=== PATIENT | female | born 1930 | race Caucasian/White ===

== ENCOUNTER 2016-09-13 17:45 | Emergency (ER) | payer MEDICARE ==
[~2016-09-13] VITALS: Ht 152.4 cm; Wt 71.4 kg
[~2016-09-13 17:45] MED LIST: CHOL500014 PO; DILT180C83 PO; LEVO88TA4 PO; PRAMOXINE HCL PR; PRE625 PO; TOP100 PO; WARF5TAB7 PO; ZINC OXIDE PR
[2016-09-13 17:55] VITALS: BP 137/93; PULSE 120; RESP 20; O2SAT 99
[2016-09-13] MEDS ORDERED: METO50TA7 PO (18:17)
[2016-09-13] MEDS ORDERED: WARF5TAB7 PO (18:17)
[2016-09-13] MEDS ORDERED: CYAN1TAB42 PO (18:17)
[2016-09-13] MEDS ORDERED: DILT240C85 PO (18:17)
--- NOTE | 2016-09-13 18:43 | ED.REPORT ---
HPI-Abd Pain F 40 and Over Date of Service Sep 13, 2016 ED Provider: Jaspreet Kang MD Patient is an 86 year old female with a hx of HTN and A-fib on Warfarin who presents to the ED complaining of weakness onset this afternoon a/p an episode of diarrhea. Associated symptoms include vomiting x1 and abdominal cramping. She reports that after the diarrhea she noticed a red color on the toilet paper but says it may have been the kidney beans she ate. She denies chest pain, SOB , hematemesis, hematochezia, or any other symptoms. She did not take her diltiazem or Warfarin yet today. She has no known sick contacts. Her normal HR is between 110-120. Nursing Notes Stated Complaint: WEAKNESS,DIARRHEA Chief Complaint: Female Abdominal Pain Nursing Notes Reviewed: Yes Allergies: Coded Allergies: Penicillins (Verified Allergy, Severe, 09/13/16) amiodarone (Verified Allergy, Severe, 09/13/16) Sulfa (Sulfonamide Antibiotics) (Verified Allergy, Unknown, 09/13/16) alprazolam (Verified Allergy, Unknown, 09/13/16) clindamycin (Verified Allergy, Unknown, 09/13/16) hydrochlorothiazide (Verified Allergy, Unknown, 09/13/16) latex (Verified Allergy, Unknown, 09/13/16) nitrofurantoin (Verified Allergy, Unknown, 09/13/16) omeprazole (Verified Allergy, Unknown, 09/13/16) prednisone (Verified Allergy, Unknown, increased heart rate, 09/13/16) Scheduled Cephalexin (Keflex) 500 Mg Capsule 500 MG PO QID Cholecalciferol (Vitamin D3) (Vitamin D) 5,000 Unit Tablet 50,000 UNIT PO QW Cyanocobalamin/Folic Acid (Vitamin D59-Kltzb Acid Tablet) 1 Each Tablet 1 EACH PO DAILY Diltiazem ER (Cardizem CD) 240 Mg Cap.er.24h 240 MG PO DAILY Estrogens Conjugated (Premarin) 0.625 Mg Tablet 0.625 MG PO DAILY Levothyroxine (Levothyroxine) 88 Mcg Tablet 88 MCG PO DAILY Metoprolol Succinate ER (Toprol XL) 50 Mg Tablet 50 MG PO DAILY Warfarin Sodium (Warfarin Sodium) 5 Mg Tablet 5 MG PO [id number] Warfarin Sodium (Warfarin Sodium) 5 Mg Tablet 2.5 MG PO [id number]-[id number] Scheduled PRN Ondansetron ODT (Zofran ODT) 4 Mg Tablet 4 MG PO Q4H PRN PRN For Nausea General Time Seen by MD: 18:41 Chief Complaint Other (Weakness ) Hx Obtained From: Patient Arrived By: Walk-in Sudden in Onset?: Yes Onset Occurred: 5 - 8 hours ago Symptom Duration: Since onset Risk Factors )( AAA Risk Stratification HypertensionNo Prior AAA, No Smoking Risk factors reviewed Past Medical History Past Medical History HTN. Hypothyroid. Atrial fibrillation. Irritable Bowel Syndrome Hemroids Past Surgical History Hysterectomy Reports: Cataract surgery Smoking History Unknown if Ever Smoker Ambulatory Status Independent Review of Systems Respiratory: Denies: Shortness of breath Cardiovascular: Denies: Chest pain GI: Reports: Abdominal pain, Diarrhea, Vomiting, Denies: Hematemesis, Hematochezia Complete sys rev & neg: except as marked. Physical Exam Vital Signs Vital Signs (First) Date Time Temp Pulse Resp B/P Pulse Ox O2 Delivery O2 Flow Rate FiO2 09/13/16 17:55 36.7 120 20 137/93 99 Room Air Initial VS: Reviewed Head / Eyes: Atraumatic, Normocephalic Skin: Warm, Dry Neurologic: Alert, Oriented, Nonfocal Psychiatric: Mood/affect normal, Behavior normal, Normal thought content General/Constitutional: Awake, Alert Respiratory / Chest: Breath sounds NL, Breath sounds = bilat, No respiratory distress Heart Rate / Rhythm: Positive: Irregular rhythm, Tachycardia Abdomen: Atraumatic, Soft, Non-tender Back: No CVA tenderness Rectum / Perineum: No gross blood Guaiac negative Interpretation & Diagnostics Lab Results Interpretation Result Diagram: 09/13/16 18309/13/16 183 Test 09/13/16 18:15 09/13/16 18:23 09/13/16 18:30 Hold Urine Received (Received) Urine Color Yellow (YELLOW) Urine Appearance Clear (CLEAR,HAZY) Urine pH 5.0 (5.0-8.0) Urine Specific [place] 1.025 (1.003-1.035) Urine Protein Tracemg/dL (NEG,TRACE) Urine Glucose (UA) Negativemg/dL (NEGATIVE) Urine Ketones Negativemg/dL (NEGATIVE) Urine Occult Blood Small (NEGATIVE) Urine Nitrite Positive (NEGATIVE) Urine Bilirubin Negative (NEGATIVE) Urine Urobilinogen Normalmg/dL (NORMAL) Urine Leukocyte Esterase Trace (NEGATIVE) Urine RBC 0-2/hpf (0-2) Urine WBC 11-50/hpf (0-5) Urine Epithelial Cells Moderate/hpf (NONE-MOD) Urine Crystals Oxalic acid crystals (NONE Urine Bacteria Moderate/hpf (NONE-FEW) Urine Hyaline Casts None/lpf (NONE) Urine Granular Casts None seen (NONE SEEN) Urine Waxy Casts None seen (NONE SEEN) Urine Red Blood Cell Casts None seen (NONE SEEN) Urine White Blood Cell Casts None seen (NONE SEEN) Urine Mucus None seen (None Seen) Urine Trichomonas None seen (NONE SEEN) Urine Yeast None (NONE SEEN) Urinalysis Comment None Urine Culture Reflexed Indicated White Blood Count 12.4th/mm3 (3.8-10.1) Red Blood Count 4.24mil/mm3 (3.90-5.20) Hemoglobin 14.0g/dL (12.0-15.6) Hematocrit 39.5% (35.0-46.0) Mean Corpuscular Volume 93.2fL (81-100) Mean Corpuscular Hemoglobin 33.0pg (27.0-35.0) Mean Corpuscular Hemoglobin Concent 35.4% (32.0-37.0) Red Cell Distribution Width 13.9% (12.3-15.4) Platelet Count 189bil/L (150-400) Neutrophils (%) (Auto) 80.3% (40-74) Lymphocytes (%) (Auto) 13.5% (14-46) Monocytes (%) (Auto) 5.7% (4-12) Eosinophils (%) (Auto) 0.1% (0-5) Basophils (%) (Auto) 0.2% (0-3) Hold Purple Top Tube Received (Received) Hold Blue Top Tube Received (Received) Sodium Level 133mEq/L (134-144) Potassium Level 4.0mEq/L (3.5-5.2) Chloride Level 96mEq/L (97-108) Carbon Dioxide Level 18mmol/L (18-29) Blood Urea Nitrogen 30mg/dL (8-27) Creatinine 1.23mg/dL (0.57-1.00) Estimat Glomerular Filtration Rate 59mL/min (>59) Glucose Level 156mg/dL (60-99) Calcium Level 8.6mg/dL (8.5-10.1) Total Bilirubin 0.3mg/dL (0.0-1.2) Aspartate Amino Transf (AST/SGOT) 22U/L (0-50) Alanine Aminotransferase (ALT/SGPT) 12U/L (0-32) Alkaline Phosphatase 48U/L (25-165) Total Protein 7.0g/dL (6.4-8.4) Albumin 3.6g/dL (3.4-5.0) Hold Luther Top Tube Received (Received) Hold Jha Top Tube Received (Received) Re-Eval/Medical Decision Med Decision/Clinical Course 86-year-old female history of atrial fibrillation on warfarin presenting with mild abdominal pain and weakness 1 day. She reports one episode of diarrhea earlier today. One episode of nonbloody nonbilious vomiting. At this time her abdominal pain is resolved. Her urine suggests UTI. Her labs are stable. Initially in nature fibrillation with RVR which resolved. Her heart rate was in the 90s at discharge. She did not want to wait any longer. She is guaiac-negative. Most likely cause of her weakness and abdominal pain is UTI. She has no signs of pyelonephritis. She requested to go home. He was given 1 dose of Rocephin here. She was discharged with Keflex. To follow up with primary doctor tomorrow. Return precautions given pain or worsening abdominal pain, fevers, weakness, nausea vomiting, back pain, any other new or worsening symptoms. Re-Evaluation/Progress #1: Time of Eval: 19:41 )( Re-Eval Abdomen: Soft Re-Evaluation/Progress Note: Discussed plan for IV abx. Patient understands and agrees with plan. All questions addressed at this time. Re-Evaluation/Progress #2: Time of Eval: 20:26 Re-Evaluation/Progress Note: Rechecked patient who is feeling better. Discussed plan for discharge. Patient understands and agrees with plan. All questions addressed at this time. Counseled Regarding: Diagnosis, Lab results, Need for follow-up, When/why to return to ED Discharge & Departure Primary Impression: UTI (urinary tract infection) Urinary tract infection type: site unspecified Hematuria presence: without hematuria Qualified Code: N39.0 - Urinary tract infection, site not specified Additional Impression: Atrial fibrillation with RVR Disposition: Home Discharge Condition All VS Reviewed: Yes Condition: Improved Patient Instructions: Urinary Tract Infection in Women (ED) Additional Instructions: Thank you for entrusting us with your care. I believe your symptoms are due to a Urinary Tract Infection. Drink plenty of fluids. Take Keflex as prescribed to clear your UTI and Zofran as needed for nausea and vomiting. Follow up with your primary doctor tomorrow. Return to the emergency department for any new or worsening symptoms including weakness, abdominal pain, nausea, vomiting, or back pain Referrals: Diane Love MD (PCP) Scribe Attestation Portions of this note were transcribed by Branden Shaver. I, Dr. Kang personally performed the history, physical exam and medical decision-making; I reviewed and confirmed the accuracy of the information in the transcribed note. Signed by: Branden Shaver 09/13/16, 2032 copies to: Diane Love MD, Ben M MD Sep 13, 2016 18:43 BRANDEN SHAVER Sep 13, 2016 18:50
[2016-09-13] MEDS ORDERED: Ondansetron 2 mg/mL 2 mL Inj IVPUSH PRN (18:55)
[2016-09-13] MEDS ORDERED: 0.9% Sodium Chloride 500 ML IV ONE (18:55)
[2016-09-13] MEDS ORDERED: Diltiazem 5 mg/mL 5 mL Inj IVPUSH ONE (19:00)
[2016-09-13 19:01] LABS: APPEARANCE,URINE CLEAR (CLEAR,HAZY); COLOR,URINE YELLOW (YELLOW); OCCULT BLOOD,URINE SMALL (NEGATIVE); UROBILINOGEN,URINE NORMAL (NORMAL)
[2016-09-13 19:06] LABS: BASOPHILS % (AUTO) 0.2 % (0-3); EOSINOPHILS % (AUTO) 0.1 % (0-5); MONOCYTES % (AUTO) 5.7 % (4-12); Mean Corpuscular Volume 93.2 fL (81-100); NEUTROPHILS % (AUTO) 80.3 % (40-74); Platelet Count 189 bil/L (150-400)
[2016-09-13] MEDS ORDERED: cefTRIAXone Inj 1,000 MG in Dextrose 5% Minibag Plus 50 ML IV ONE (19:40)
[2016-09-13] MEDS ORDERED: Diltiazem CD 240 mg ER24 Capsule PO ONE (19:45)
[2016-09-13] MEDS ORDERED: CEPH-512 PO (20:33)
[2016-09-13] MEDS ORDERED: ONDA4TAB9 PO (20:33)
[2016-09-13 20:59] VITALS: BP 140/86; PULSE 105; RESP 20; O2SAT 95
== END 2016-09-13 20:50 | disposition home or self-care (01) ==
LOC: SED 17:45
DX: N39.0 Urinary tract infection, site not specified (principal); B96.20 Unspecified Escherichia coli [E. coli] as the cause of diseases classified elsewhere; I11.9 Hypertensive heart disease without heart failure; I48.91 Unspecified atrial fibrillation; E03.9 Hypothyroidism, unspecified; Z79.01 Long term (current) use of anticoagulants; Z88.0 Allergy status to penicillin; Z88.1 Allergy status to other antibiotic agents; Z88.5 Allergy status to narcotic agent; Z88.8 Allergy status to other drugs, medicaments and biological substances; Z91.040 Latex allergy status
CPT/HCPCS: 36415; 80053; 81000; 85025; 87077; 87086; 87088; 87186; 96365; 99285; J0696; J7030

== ENCOUNTER 2016-11-19 14:42 | Observation (INO) | payer MEDICARE ==
[~2016-11-19] VITALS: Ht 154.9 cm; Wt 72.5 kg
[~2016-11-19 14:42] MED LIST changes: +CEPH-512 PO; +CYAN1TAB42 PO; -DILT180C83 PO; +DILT240C85 PO; +METO50TA7 PO; +ONDA4TAB9 PO; -PRAMOXINE HCL PR; -TOP100 PO; -ZINC OXIDE PR
[2016-11-19 14:44] VITALS: BP 155/56; PULSE 112; RESP 24; O2SAT 98
--- NOTE | 2016-11-19 15:06 | ED.REPORT ---
HPI-Chest Pain 40 and Over Date of Service Nov 19, 2016 ED Provider: Db Rowland DO An 86 year old female with a history of hypertension, hypothyroidism, atrial fibrillation and anxiety presents to the ED complaining of chest pain. The pt has frequent episodes of atrial fibrillation with associated shortness of breath , though these episodes do not generally include chest pain. She was seen by her photonics engineering technician on 11/06/2016 and prescribed digoxin. Soon after taking this medication, she noticed that her symptoms were worsening and she was developing a "burning rash" across her chest. The pt took her dose of digoxin this morning , then began experiencing 710 nonradiating chest pain at 12:00 that has persisted since. This has been accompanied by worsening shortness of breath, nausea and diaphoresis, though she denies dehydration. The pt suspects that her symptoms are due to a reaction to the digoxin. She takes diltiazem, metoprolol, warfarin and levothyroxine daily, but does not take aspirin. She denies history of CAD, TN or cardiac stent. Nursing Notes Stated Complaint: CHEST PAIN Chief Complaint: Dysrhythmia/Cardiac Nursing Notes Reviewed: Yes Allergies: Coded Allergies: Penicillins (Verified Allergy, Severe, 11/19/16) amiodarone (Verified Allergy, Severe, 11/19/16) Sulfa (Sulfonamide Antibiotics) (Verified Allergy, Unknown, 11/19/16) alprazolam (Verified Allergy, Unknown, 11/19/16) clindamycin (Verified Allergy, Unknown, 11/19/16) hydrochlorothiazide (Verified Allergy, Unknown, 11/19/16) latex (Verified Allergy, Unknown, 11/19/16) nitrofurantoin (Verified Allergy, Unknown, 11/19/16) omeprazole (Verified Allergy, Unknown, 11/19/16) prednisone (Verified Allergy, Unknown, increased heart rate, 11/19/16) Scheduled Cholecalciferol (Vitamin D3) (Vitamin D) 50,000 Unit Capsule 50,000 UNIT PO every saturday Cyanocobalamin/Folic Acid (Vitamin A07-Pcdya Acid Tablet) 1 Each Tablet 1 EACH PO DAILY Digoxin (Digoxin) 125 Mcg Tablet 125 MCG PO HS Diltiazem ER (Cardizem CD) 240 Mg Cap.er.24h 240 MG PO QPM Estrogens Conjugated (Premarin) 0.625 Mg Tablet 0.625 MG PO Sat,,,Sat,Sat, Levothyroxine (Levothyroxine) 88 Mcg Tablet 88 MCG PO DAILY Metoprolol Succinate ER (Metoprolol Succinate ER) 100 Mg Tab.er.24h 100 MG PO QPM Warfarin Sodium (Warfarin Sodium) 5 Mg Tablet 5 MG PO ,,,[place] Warfarin Sodium (Warfarin Sodium) 5 Mg Tablet 2.5 MG PO Sat,Sat,Sat General Time Seen by MD: 15:05 Chief Complaint Chest pain Hx Obtained From: Patient Arrived By: Walk-in Sudden in Onset?: Yes Onset Occurred: 1 - 4 hours ago Symptom Duration: Since onset Recent Healthcare: No recent hospitalization, Recent doctor visit Similar Sx Previous: No Past Medical History Past Medical History HTN. Hypothyroid. Atrial fibrillation. Severe anxiety Irritable Bowel Syndrome Hemroids Arthritis Past Surgical History Hysterectomy Reports: Cataract surgery Smoking History Unknown if Ever Smoker Social History Other Social History: Good social support Ambulatory Status Independent Review of Systems Review of Systems Note: denies dehydration Respiratory: Reports: Shortness of breath, Denies: Non-productive cough Cardiovascular: Reports: Chest pain GI: Reports: Nausea, Denies: Abdominal pain, Vomiting Musculoskeletal: Denies: Back pain, Neck pain Skin: Reports Diaphoresis, Reports Rash Complete sys rev & neg: except as marked. Physical Exam Initial Vital Signs Vital Signs (First) Date Time Temp Pulse Resp B/P Pulse Ox O2 Delivery O2 Flow Rate FiO2 11/19/16 14:44 36.4 112 24 155/56 98 Room Air Initial VS: Reviewed General/Constitutional: Awake, Alert Respiratory / Chest: Atraumatic, Breath sounds NL, Breath sounds = bilat, No respiratory distress Cardiovascular: Heart rate NL, Heart sounds NL Heart Rate / Rhythm: Positive: Irreg irregular rhythm Abdomen: Atraumatic, Soft, Non-tender, BS normoactive Neck: Atraumatic, Supple, Full range of motion Back: Atraumatic, Full range of motion Lower Extremity / Pelvis / MS: Atraumatic, Full range of motion trace lower extremity edema bilaterally Skin: Atraumatic, Color NL, No rash, Warm, Dry Neurologic: Oriented X3, Speech NL, No motor deficits, No sensory deficits Psychiatric: Affect NL, Mood NL Head / Eyes: Atraumatic, Normocephalic, PERRL, EOMI ENT: Atraumatic, Airway patent, Mucous membranes moist Upper Extremity / MS: Atraumatic, Full range of motion Interpretation & Diagnostics Lab Results Interpretation Result Diagram: 11/20/16 0200 11/20/16 0200 Test 11/19/16 15:10 11/19/16 16:31 Neutrophils (%) (Auto) 62.3% (40-74) Lymphocytes (%) (Auto) 29.0% (14-46) Monocytes (%) (Auto) 7.1% (4-12) Eosinophils (%) (Auto) 0.8% (0-5) Basophils (%) (Auto) 0.4% (0-3) Activated Partial Thromboplast Time 33.0sec (22.8-33.0) D-Dimer < 0.5mg/L FEU (<0.50) Total Bilirubin 0.2mg/dL (0.0-1.2) Aspartate Amino Transf (AST/SGOT) 20U/L (0-50) Alanine Aminotransferase (ALT/SGPT) 12U/L (0-32) Alkaline Phosphatase 49U/L (25-165) Pro-B-Type Natriuretic Peptide 1517pg/mL (0-738) Total Protein 7.7g/dL (6.4-8.4) Albumin 3.9g/dL (3.4-5.0) Thyroid Stimulating Hormone (TSH) 1.640uIU/mL (0.450-4.500) Digoxin Level 0.7nG/mL (0.9-2.0) Urine Color Yellow (YELLOW) Urine Appearance Clear (CLEAR,HAZY) Urine pH 6.0 (5.0-8.0) Urine Specific [place] 1.010 (1.003-1.035) Urine Protein Negativemg/dL (NEG,TRACE) Urine Glucose (UA) Negativemg/dL (NEGATIVE) Urine Ketones Negativemg/dL (NEGATIVE) Urine Occult Blood Small (NEGATIVE) Urine Nitrite Negative (NEGATIVE) Urine Bilirubin Negative (NEGATIVE) Urine Urobilinogen Normalmg/dL (NORMAL) Urine Leukocyte Esterase Negative (NEGATIVE) Urine RBC 3-10/hpf (0-2) Urine WBC 0-5/hpf (0-5) Urine Epithelial Cells Moderate/hpf (NONE-MOD) Urine Crystals None seen (NONE SEEN) Urine Bacteria Moderate/hpf (NONE-FEW) Urine Hyaline Casts None/lpf (NONE) Urine Granular Casts None seen (NONE SEEN) Urine Waxy Casts None seen (NONE SEEN) Urine Red Blood Cell Casts None seen (NONE SEEN) Urine White Blood Cell Casts None seen (NONE SEEN) Urine Mucus None seen (None Seen) Urine Trichomonas None seen (NONE SEEN) Urine Yeast None (NONE SEEN) Urinalysis Comment None Urine Culture Reflexed Indicated Hold Urine Received (Received) Laboratory Tests 72 Hours Test 11/19/16 15:10 11/19/16 16:31 White Blood Count 7.6th/mm3 (3.8-10.1) Red Blood Count 4.37mil/mm3 (3.90-5.20) Hemoglobin 14.4g/dL (12.0-15.6) Hematocrit 40.2% (35.0-46.0) Mean Corpuscular Volume 92.0fL (81-100) Mean Corpuscular Hemoglobin 33.0pg (27.0-35.0) Mean Corpuscular Hemoglobin Concent 35.8% (32.0-37.0) Red Cell Distribution Width 14.0% (12.3-15.4) Platelet Count 197bil/L (150-400) Neutrophils (%) (Auto) 62.3% (40-74) Lymphocytes (%) (Auto) 29.0% (14-46) Monocytes (%) (Auto) 7.1% (4-12) Eosinophils (%) (Auto) 0.8% (0-5) Basophils (%) (Auto) 0.4% (0-3) Prothrombin Time 20.8sec (8.1-12.5) Prothromb Time International Ratio 1.92ratio Activated Partial Thromboplast Time 33.0sec (22.8-33.0) D-Dimer < 0.5mg/L FEU (<0.50) Sodium Level 134mEq/L (134-144) Potassium Level 3.4mEq/L (3.5-5.2) Chloride Level 93mEq/L (97-108) Carbon Dioxide Level 23mmol/L (18-29) Blood Urea Nitrogen 34mg/dL (8-27) Creatinine 1.17mg/dL (0.57-1.00) Estimat Glomerular Filtration Rate 63mL/min (>59) Glucose Level 139mg/dL (60-99) Calcium Level 9.5mg/dL (8.5-10.1) Magnesium Level 1.6mg/dL (1.6-2.6) Total Bilirubin 0.2mg/dL (0.0-1.2) Aspartate Amino Transf (AST/SGOT) 20U/L (0-50) Alanine Aminotransferase (ALT/SGPT) 12U/L (0-32) Alkaline Phosphatase 49U/L (25-165) Troponin T < 0.010ug/L (0.0-0.011) Pro-B-Type Natriuretic Peptide 1517pg/mL (0-738) Total Protein 7.7g/dL (6.4-8.4) Albumin 3.9g/dL (3.4-5.0) Thyroid Stimulating Hormone (TSH) 1.640uIU/mL (0.450-4.500) Digoxin Level 0.7nG/mL (0.9-2.0) Urine Color Yellow (YELLOW) Urine Appearance Clear (CLEAR,HAZY) Urine pH 6.0 (5.0-8.0) Urine Specific [place] 1.010 (1.003-1.035) Urine Protein Negativemg/dL (NEG,TRACE) Urine Glucose (UA) Negativemg/dL (NEGATIVE) Urine Ketones Negativemg/dL (NEGATIVE) Urine Occult Blood Small (NEGATIVE) Urine Nitrite Negative (NEGATIVE) Urine Bilirubin Negative (NEGATIVE) Urine Urobilinogen Normalmg/dL (NORMAL) Urine Leukocyte Esterase Negative (NEGATIVE) Urine RBC 3-10/hpf (0-2) Urine WBC 0-5/hpf (0-5) Urine Epithelial Cells Moderate/hpf (NONE-MOD) Urine Crystals None seen (NONE SEEN) Urine Bacteria Moderate/hpf (NONE-FEW) Urine Hyaline Casts None/lpf (NONE) Urine Granular Casts None seen (NONE SEEN) Urine Waxy Casts None seen (NONE SEEN) Urine Red Blood Cell Casts None seen (NONE SEEN) Urine White Blood Cell Casts None seen (NONE SEEN) Urine Mucus None seen (None Seen) Urine Trichomonas None seen (NONE SEEN) Urine Yeast None (NONE SEEN) Urinalysis Comment None Urine Culture Reflexed Indicated Hold Urine Received (Received) ECG Interpretation ECG Interpretation: atrial fibrillation with a rate of 84 old inferior infarct prolonged QT interval T wave inversion in V5 and V6 when compared to prior dated 02/09/2014, heart rate has slowed and T wave inversions are more pronounced Time: 15:48 Interpreted by: ED physician X-Ray Chest Interpretation Chest Xray Interpretation: IMPRESSION: 1. No definite acute cardiopulmonary disease. 2. Probable small calcified granuloma peripherally in the left lung base. 3. Cardiomegaly redemonstrated. Dictated by: Christopher Brennan M.D. on 11/19/2016 at 15:15 Approved by: Christopher Brennan M.D. on 11/19/2016 at 15:21 Interpretation / Wet Read by: Interpret - Radiologist Re-Eval/Medical Decision Med Decision/Clinical Course 86-year-old female with a history of chronic A. fib presenting with intermittent chest pain associated with activity and increasingly short of breath beyond her baseline after recently starting digoxin and she also notes an accompanying burning rash on her chest that is not visible to me. I discussed her care with her photonics engineering technician, Dr. Del Cid who does not believe the digoxin is a factor and would like to keep this going at this time. She notes the patient has quite a bit of anxiety. I have given her Ativan 0.5 mg and this did not seem to improve her anxiousness in the ER. concern for pulmonary embolus is low as she is on warfarin and d-dimer was negative. Her x- ray shows cardiomegaly and pro BNP is elevated. She was treated with Lasix IV. She also was treated with Nitropaste which seemed initially to improve her pain but upon ambulating the pain returned. No obvious acute coronary syndrome based off of EKG or initial troponin however fact that she is 86 and is having exertional chest pain/dyspnea admission is advisable. Patient is admitted for further workup and treatment Time of Eval: 16:39 Re-Evaluation/Progress Note: Pt rechecked, who is resting. Her pain had improved somewhat but returned when she stood and walked. Time of Eval: 17:24 Patient Status: Condition improved Re-Evaluation/Progress Note: Pt rechecked, who is comfortable. The diagnosis and plan for admission are discussed. The pt understands and agrees with the plan. All questions are addressed at this time. Time of Eval: 17:29 Re-Evaluation/Progress Note: Spoke with pt's daughter, Magnolia, on the phone. Pt's daughter is updated on the pt's condition. Consultation #1: Referral / Consult Name: Chrystal Del Cid MD Consulted With: Cardiology Call Returned at: 17:05 Movie Projectionist: Agrees with eval, Agrees with plan Note: Spoke with Dr. Pettit, cardiology, regarding pt's case. Dr. Pettit agrees with the evaluation and plan for admission. Consultation #2: Referral / Consult Name: Carlos Zafar Consulted With: Hospitalist Call Returned at: 17:38 Movie Projectionist: Agrees with eval, Agrees with plan, Accepts admit Note: Spoke with Dr. Zafar, hospitalist, regarding pt's case. Dr. Zafar agrees with the evaluation and agrees to admit the pt. Counseled Regarding: Diagnosis, Lab results, Need for admission Discharge & Departure Primary Impression: Chest pain Chest pain type: unspecified Qualified Code: R07.9 - Chest pain, unspecified Additional Impressions: Shortness of breath Atrial fibrillation Atrial fibrillation type: chronic Qualified Code: I48.2 - Chronic atrial fibrillation Disposition: ADMITTED TO HOSPITAL Discharge Condition All VS Reviewed: Yes Condition: Stable Referrals: Diane Love MD (PCP) Chrystal Del Cid MD Scribe Attestation Portions of this note were transcribed by Buddy Aliica. I, Dr. Rowland personally performed the history, physical exam and medical decision-making; I reviewed and confirmed the accuracy of the information in the transcribed note. copies to: Diane Love MD; Chrystal Del Cid MD, Gary R DO Nov 19, 2016 15:06 BUDDY ALICIA Nov 19, 2016 15:32
--- NOTE | 2016-11-19 15:22 | DRSVH ---
PROCEDURE: X-RAY CHEST ONE VIEW, PORTABLE ([id number]) INDICATIONS: PAIN TECHNIQUE: One view of the chest was acquired. COMPARISON: [facility], , CHEST 1VW (PORTABLE), 02/08/2014, 4:56. FINDINGS: Surgical changes and devices: None. Lungs and pleura: No pleural effusions or pneumothorax. No acute consolidation. There is a small d ense nodule in the left lung base peripherally measuring approximately 5 mm suggestive of a calcified granuloma. Mediastinum: Mediastinal contours appear unchanged. Heart size is enlarged. Bones and chest wall: No suspicious bony lesions. Overlying soft tissues appear unremarkable. IMPRESSION: 1. No definite acute cardiopulmonary disease. 2. Probable small calcified granuloma peripherally in the left lung base. 3. Cardiomegaly redemonstrated. Dictated by: Christopher Brennan M.D. on 11/19/2016 at 15:15 Approved by: Christopher Brennan M.D. on 11/19/2016 at 15:21
[2016-11-19] MEDS ORDERED: Nitroglycerin 2% 1 Gm Ointment TOPICAL ONE (15:30)
[2016-11-19] MEDS ORDERED: Ondansetron 2 mg/mL 2 mL Inj IVPUSH ONE (15:35)
[2016-11-19 15:53] LABS: BASOPHILS % (AUTO) 0.4 % (0-3); EOSINOPHILS % (AUTO) 0.8 % (0-5); MONOCYTES % (AUTO) 7.1 % (4-12); NEUTROPHILS % (AUTO) 62.3 % (40-74); Platelet Count 197 bil/L (150-400)
[2016-11-19 16:19] LABS: D-Dimer < 0.5 mg/L FEU (<0.50); INR 1.92 ratio
[2016-11-19 16:21] LABS: Magnesium 1.6 mg/dL (1.6-2.6)
[2016-11-19 16:30] LABS: TROPONIN T < 0.010 ug/L (0.0-0.011)
[2016-11-19 16:43] VITALS: BP 155/94; PULSE 85; RESP 19; O2SAT 100
[2016-11-19] MEDS ORDERED: Furosemide 10 mg/mL 4 mL Inj IVPUSH ONE (16:45)
[2016-11-19 16:50] LABS: APPEARANCE,URINE CLEAR (CLEAR,HAZY); COLOR,URINE YELLOW (YELLOW); OCCULT BLOOD,URINE SMALL (NEGATIVE); UROBILINOGEN,URINE NORMAL (NORMAL)
[2016-11-19] MEDS ORDERED: LORazepam 0.5 mg Tablet PO ONE (17:10)
[2016-11-19] MEDS ORDERED: Polyethylene Glycol (PEG) 17 Gm Powder PO PRN (18:15)
[2016-11-19] MEDS ORDERED: Ondansetron 2 mg/mL 2 mL Inj IVPUSH PRN (18:15)
[2016-11-19] MEDS ORDERED: Alum-Mag Hydrox-Simeth 30 mL Suspension PO PRN (18:15)
--- NOTE | 2016-11-19 18:25 | PCM.HPMED ---
Subjective Date of Service Nov 19, 2016 Primary Provider: Admitting Physician: Carlos Zafar Primary Care Physician: Diane Love MD Attending Physician: Carlos Zafar Chief Complaint: Chest pain History of Present Illness: 86 year old female with a history of hypertension, hypothyroidism, atrial fibrillation (on Coumadin) and anxiety presents with complaint of acute mid- sternal chest pain that started around noon time today. She was sitting when the pain started. She describes the pain as pressure type and rates it at about 6 out of 10 and non-radiating. She stood up hoping that the pain would improve but noticed that she was a little more short of breath than her usual. When the pain didn't resolve she called her neighbor who brought her to the ED. In the ED she received ASA and 1 inch Nitropaste which she says didn't make a difference in her symptoms. Although she says right this moment she has no chest pain she can't really recall when the pain resolved completely and insists that the pain isn't gone completely because it has been going away and coming back since she's been in the ED. She otherwise denies any other associated symptoms like nausea, vomiting, diaphoresis, or lightheadedness. She has not noticed any new swelling in her extremities and denies any orthopnea or paroxysmal nocturnal dyspnea. She denies any recent chest pain with exertion. Of note, she was seen by her litigation services manager (Dr. Del Cid) on 11/06/2016 and was started on Digoxin. Soon after taking this medication, she noticed that her symptoms of palpitation were worsening and she was developing a "burning rash" across her chest. Review of Systems: Constitutional: Negative, except as otherwise mentioned in the history above. Ophthalmologic: Negative, except as otherwise mentioned in the history above. Cardiovascular: Negative, except as otherwise mentioned in the history above. Respiratory: Negative, except as otherwise mentioned in the history above. Gastrointestinal: Negative, except as otherwise mentioned in the history above. Genitourinary: Negative, except as otherwise mentioned in the history above. Musculoskeletal: Negative, except as otherwise mentioned in the history above. Neurological: Negative, except as otherwise mentioned in the history above. Psychiatric: Negative, except as otherwise mentioned in the history above. Hematologic/Lymphatic: Negative, except as otherwise mentioned in the history above. Allergic/Immunologic: Negative, except as otherwise mentioned in the history above. Allergies Coded Allergies: Penicillins (Verified Allergy, Severe, 11/19/16) amiodarone (Verified Allergy, Severe, 11/19/16) Sulfa (Sulfonamide Antibiotics) (Verified Allergy, Unknown, 11/19/16) alprazolam (Verified Allergy, Unknown, 11/19/16) clindamycin (Verified Allergy, Unknown, 11/19/16) hydrochlorothiazide (Verified Allergy, Unknown, 11/19/16) latex (Verified Allergy, Unknown, 11/19/16) nitrofurantoin (Verified Allergy, Unknown, 11/19/16) omeprazole (Verified Allergy, Unknown, 11/19/16) prednisone (Verified Allergy, Unknown, increased heart rate, 11/19/16) Home Medications Not officially verified yet but per ED report she seems to be on the following ( note that Digoxin is missing from this list) Scheduled Cephalexin (Keflex) 500 Mg Capsule 500 MG PO QID Cholecalciferol (Vitamin D3) (Vitamin D) 5,000 Unit Tablet 50,000 UNIT PO QW Cyanocobalamin/Folic Acid (Vitamin B50-Wpfpi Acid Tablet) 1 Each Tablet 1 EACH PO DAILY Diltiazem ER (Cardizem CD) 240 Mg Cap.er.24h 240 MG PO DAILY Estrogens Conjugated (Premarin) 0.625 Mg Tablet 0.625 MG PO DAILY Levothyroxine (Levothyroxine) 88 Mcg Tablet 88 MCG PO DAILY Metoprolol Succinate ER (Toprol XL) 50 Mg Tablet 50 MG PO DAILY Warfarin Sodium (Warfarin Sodium) 5 Mg Tablet 5 MG PO [id number] Warfarin Sodium (Warfarin Sodium) 5 Mg Tablet 2.5 MG PO MON-WED-SAT Scheduled PRN Ondansetron ODT (Zofran ODT) 4 Mg Tablet 4 MG PO Q4H PRN PRN For Nausea Exam Vital Signs & I/O Vital Sign- Last 8 Hours Date Time Temp Pulse Resp B/P Pulse Ox O2 Delivery O2 Flow Rate FiO2 11/19/16 16:43 85 19 155/94 100 Room Air 11/19/16 14:44 36.4 112 24 155/56 98 Room Air Lab & Micro Results Laboratory Tests Test 11/19/16 15:10 11/19/16 16:31 White Blood Count 7.6th/mm3 (3.8-10.1) Red Blood Count 4.37mil/mm3 (3.90-5.20) Hemoglobin 14.4g/dL (12.0-15.6) Hematocrit 40.2% (35.0-46.0) Mean Corpuscular Volume 92.0fL (81-100) Mean Corpuscular Hemoglobin 33.0pg (27.0-35.0) Mean Corpuscular Hemoglobin Concent 35.8% (32.0-37.0) Red Cell Distribution Width 14.0% (12.3-15.4) Platelet Count 197bil/L (150-400) Neutrophils (%) (Auto) 62.3% (40-74) Lymphocytes (%) (Auto) 29.0% (14-46) Monocytes (%) (Auto) 7.1% (4-12) Eosinophils (%) (Auto) 0.8% (0-5) Basophils (%) (Auto) 0.4% (0-3) Prothrombin Time 20.8sec (8.1-12.5) Prothromb Time International Ratio 1.92ratio Activated Partial Thromboplast Time 33.0sec (22.8-33.0) D-Dimer < 0.5mg/L FEU (<0.50) Sodium Level 134mEq/L (134-144) Potassium Level 3.4mEq/L (3.5-5.2) Chloride Level 93mEq/L (97-108) Carbon Dioxide Level 23mmol/L (18-29) Blood Urea Nitrogen 34mg/dL (8-27) Creatinine 1.17mg/dL (0.57-1.00) Estimat Glomerular Filtration Rate 63mL/min (>59) Glucose Level 139mg/dL (60-99) Calcium Level 9.5mg/dL (8.5-10.1) Magnesium Level 1.6mg/dL (1.6-2.6) Total Bilirubin 0.2mg/dL (0.0-1.2) Aspartate Amino Transf (AST/SGOT) 20U/L (0-50) Alanine Aminotransferase (ALT/SGPT) 12U/L (0-32) Alkaline Phosphatase 49U/L (25-165) Troponin T < 0.010ug/L (0.0-0.011) Pro-B-Type Natriuretic Peptide 1517pg/mL (0-738) Total Protein 7.7g/dL (6.4-8.4) Albumin 3.9g/dL (3.4-5.0) Thyroid Stimulating Hormone (TSH) 1.640uIU/mL (0.450-4.500) Digoxin Level 0.7nG/mL (0.9-2.0) Urine Color Yellow (YELLOW) Urine Appearance Clear (CLEAR,HAZY) Urine pH 6.0 (5.0-8.0) Urine Specific [place] 1.010 (1.003-1.035) Urine Protein Negativemg/dL (NEG,TRACE) Urine Glucose (UA) Negativemg/dL (NEGATIVE) Urine Ketones Negativemg/dL (NEGATIVE) Urine Occult Blood Small (NEGATIVE) Urine Nitrite Negative (NEGATIVE) Urine Bilirubin Negative (NEGATIVE) Urine Urobilinogen Normalmg/dL (NORMAL) Urine Leukocyte Esterase Negative (NEGATIVE) Urine RBC 3-10/hpf (0-2) Urine WBC 0-5/hpf (0-5) Urine Epithelial Cells Moderate/hpf (NONE-MOD) Urine Crystals None seen (NONE SEEN) Urine Bacteria Moderate/hpf (NONE-FEW) Urine Hyaline Casts None/lpf (NONE) Urine Granular Casts None seen (NONE SEEN) Urine Waxy Casts None seen (NONE SEEN) Urine Red Blood Cell Casts None seen (NONE SEEN) Urine White Blood Cell Casts None seen (NONE SEEN) Urine Mucus None seen (None Seen) Urine Trichomonas None seen (NONE SEEN) Urine Yeast None (NONE SEEN) Urinalysis Comment None Urine Culture Reflexed Indicated Hold Urine Received (Received) Microbiology 11/19/16 Urine Culture, Received Pending Result Diagram: 11/19/16 1510 11/19/16 1510 PMH 1. Chronic atrial fibrillation on warfarin 2. Hypothyroidism. 3. Hypertension. 4. Rheumatoid arthritis not on medication. 5. Irritable bowel syndrome Family History Denies any family history of heart issues Social History Hx Alcohol Use: No Hx Substance Use: No Hx Tobacco Use: No Smoking Status: Never Smoker Living Arrangement: Alone (in a house without stairs) Exam Vital Signs Vital Sign - Last Date Time Temp Pulse Resp B/P Pulse Ox O2 Delivery O2 Flow Rate FiO2 11/19/16 16:43 85 19 155/94 100 Room Air 9/11/17 14:44 36.4 General: Alert, Oriented X3, Cooperative, No Acute Distress Head: Normal Eyes: PERRLA, EOMI, Scleral Anicteric Nose: Mucous Membr Moist/[place] Mouth: Mucous Membr Moist/[place] Neck: Supple Chest & Lungs: Chest Wall Normal, Clear to auscultation & percussion Cardiovascular: Other (irreg/irreg) Pulses: NL carotid, radial, femoral, DP, PT Abdomen: Non-tender, Non-distended, Normoactive bowel tones, Soft Extremities: Other (trace bilateral LE edema up to the ankles ) Skin: Other (no obvious ulcer or rash noted) Neurological: Grossly Neurologically Intact, Cranial Nerves 2-12 Intact, Normal Speech Additional Information: Psych: calm, appropriate Lab and Diagnostics Result Diagram: 11/19/16 1510 11/19/16 1510 X-Rays, CTs and MRIs Date of Service: 11/19/16 1450 PROCEDURE: X-RAY CHEST ONE VIEW, PORTABLE ([id number]) IMPRESSION: 1. No definite acute cardiopulmonary disease. 2. Probable small calcified granuloma peripherally in the left lung base. 3. Cardiomegaly redemonstrated. Dictated by: Christopher Brennan M.D. on 11/19/2016 at 15:15 Approved by: Christopher Brennan M.D. on 11/19/2016 at 15:21 12-lead ECG A-fib at rate of about [address] elevation/depression noted. Assessment & Plan 86 year old female with a history of hypertension, hypothyroidism, atrial fibrillation (on Coumadin) and anxiety presents with complaint of acute mid- sternal chest pain. # Acute chest pain, present on admission. - Initial workup is negative for any acute ACS and reassuring - Cycle Trop x 3 - Echo + Stress test in AM - Check fasting lipid panel - D-Dimer already checked and negative # Elevated Cr on admission unclear if acute or chronic kidney disease - Her Cr was elevated back in September of this year but was normal before that. She notes that she never had any history of kidney disease until September 2016 at which time her elevated Cr was supposedly attributed the antibiotics that she was taking for her UTI. - Avoid nephrotoxic meds - Followup repeat labs in AM - If Cr still elevated in AM consider renal U/S vs further outpatient followup # Mild acute hypokalemia, present on admission. - Replete and followup # Chronic atrial fibrillation on warfarin, present on admission - Rate controlled - Continue with Warfarin (Pharmacy to dose) - INR currently mildly sub-therapeutic. Followup repeat INR in AM # Chronic Hypothyroidism. Presumed stable. - Continue with home dose Levothyroxine once home meds verified # Chronic Hypertension. Currently a little poorly controlled. - Verify home BP meds and resume # Rheumatoid arthritis not on medication. - Currently stable # Irritable bowel syndrome. - Currently stable. Expected length of hospital stay is less than 2 midnights and likely 1-2 days GI Prophylaxis: Not indicated VTE Prophylaxis: Sub-Q Heparin (Unfractionated) (until INR becomes therapeutic on Coumadin) Resuscitation Status: Limited Interventions (OK to resuscitate but do NOT intubate. Discussed and verified with the patient.) Limited Interventions: Compressions, Cardioversion/Defibrillation, BiPAP, Medications and IV Fluid Time spent 60 min Carlos Zafar Nov 19, 2016 18:25
[2016-11-19] MEDS ORDERED: DIGO125T73 PO (18:48)
[2016-11-19] MEDS ORDERED: METO-394 PO (18:48)
[2016-11-19] MEDS ORDERED: CHOL500050 PO (18:49)
[2016-11-19] MEDS ORDERED: Potassium Chloride 20 mEq SR Tablet PO ONE (18:50)
[2016-11-19 19:14] VITALS: BP 141/92; PULSE 102; PULSE 92; RESP 18; RESP 19; O2SAT 97
[2016-11-19 19:22] VITALS: PULSE 93
--- NOTE | 2016-11-19 19:58 | PCM.CONPHA ---
Subjective Date of Service: Nov 19, 2016 Chest pain Reason for Pharmacy Consult: Anticoagulation Management Objective Vital Signs Date Time Temp Pulse Resp B/P Pulse Ox O2 Delivery O2 Flow Rate FiO2 11/19/16 19:14 36.3 102 19 141/92 97 Room Air 11/19/16 19:14 92 18 11/19/16 16:43 85 19 155/94 100 Room Air 11/19/16 14:44 36.4 112 24 155/56 98 Room Air Weight (Kilograms): 72.600 Height (Feet): 5 Height (Inches): 1.00 Test 11/19/16 15:10 11/19/16 16:31 11/19/16 18:46 White Blood Count 7.6th/mm3 (3.8-10.1) Red Blood Count 4.37mil/mm3 (3.90-5.20) Hemoglobin 14.4g/dL (12.0-15.6) Hematocrit 40.2% (35.0-46.0) Mean Corpuscular Volume 92.0fL (81-100) Mean Corpuscular Hemoglobin 33.0pg (27.0-35.0) Mean Corpuscular Hemoglobin Concent 35.8% (32.0-37.0) Red Cell Distribution Width 14.0% (12.3-15.4) Platelet Count 197bil/L (150-400) Neutrophils (%) (Auto) 62.3% (40-74) Lymphocytes (%) (Auto) 29.0% (14-46) Monocytes (%) (Auto) 7.1% (4-12) Eosinophils (%) (Auto) 0.8% (0-5) Basophils (%) (Auto) 0.4% (0-3) Prothrombin Time 20.8sec (8.1-12.5) Prothromb Time International Ratio 1.92ratio Activated Partial Thromboplast Time 33.0sec (22.8-33.0) D-Dimer < 0.5mg/L FEU (<0.50) Sodium Level 134mEq/L (134-144) Potassium Level 3.4mEq/L (3.5-5.2) Chloride Level 93mEq/L (97-108) Carbon Dioxide Level 23mmol/L (18-29) Blood Urea Nitrogen 34mg/dL (8-27) Creatinine 1.17mg/dL (0.57-1.00) Estimat Glomerular Filtration Rate 63mL/min (>59) Glucose Level 139mg/dL (60-99) Calcium Level 9.5mg/dL (8.5-10.1) Magnesium Level 1.6mg/dL (1.6-2.6) Total Bilirubin 0.2mg/dL (0.0-1.2) Aspartate Amino Transf (AST/SGOT) 20U/L (0-50) Alanine Aminotransferase (ALT/SGPT) 12U/L (0-32) Alkaline Phosphatase 49U/L (25-165) Pro-B-Type Natriuretic Peptide 1517pg/mL (0-738) Total Protein 7.7g/dL (6.4-8.4) Albumin 3.9g/dL (3.4-5.0) Thyroid Stimulating Hormone (TSH) 1.640uIU/mL (0.450-4.500) Digoxin Level 0.7nG/mL (0.9-2.0) Urine Color Yellow (YELLOW) Urine Appearance Clear (CLEAR,HAZY) Urine pH 6.0 (5.0-8.0) Urine Specific [place] 1.010 (1.003-1.035) Urine Protein Negativemg/dL (NEG,TRACE) Urine Glucose (UA) Negativemg/dL (NEGATIVE) Urine Ketones Negativemg/dL (NEGATIVE) Urine Occult Blood Small (NEGATIVE) Urine Nitrite Negative (NEGATIVE) Urine Bilirubin Negative (NEGATIVE) Urine Urobilinogen Normalmg/dL (NORMAL) Urine Leukocyte Esterase Negative (NEGATIVE) Urine RBC 3-10/hpf (0-2) Urine WBC 0-5/hpf (0-5) Urine Epithelial Cells Moderate/hpf (NONE-MOD) Urine Crystals None seen (NONE SEEN) Urine Bacteria Moderate/hpf (NONE-FEW) Urine Hyaline Casts None/lpf (NONE) Urine Granular Casts None seen (NONE SEEN) Urine Waxy Casts None seen (NONE SEEN) Urine Red Blood Cell Casts None seen (NONE SEEN) Urine White Blood Cell Casts None seen (NONE SEEN) Urine Mucus None seen (None Seen) Urine Trichomonas None seen (NONE SEEN) Urine Yeast None (NONE SEEN) Urinalysis Comment None Urine Culture Reflexed Indicated Hold Urine Received (Received) Troponin T < 0.010ug/L (0.0-0.011) Assessment/Plan Assessment/Plan WARFARIN MANAGEMENT A\ 86 YO F ADMITTED FOR CHEST PAIN WITH HISTORY OF AFIB HOME DOSE WARFARIN 2.5mg SATURDAY,SATURDAY,SATURDAY; 5mg ALL OTHER DAYS GOAL INR =2-3 CURRENT INR= 1.92 HCT=40.2 LLY=094 NO BLEEDING REPORTED BY RN PT REPORTED LAST WARFARIN DOSE 11/18 P\ WILL CONTINUE PT HOME REGIMEN WARFARIN 5MG PO X1 TONIGHT AND CHECK INR WITH AM LABS. Carlo Mcdowell formerly [facility] Nov 19, 2016 19:58
[2016-11-19] MEDS: Heparin 5,000 Unit/mL Inj SUBQ SCH (20:00)
[2016-11-19] MEDS: Diltiazem CD 240 mg ER24 Capsule PO SCH (20:42)
--- NOTE | 2016-11-19 21:43 | NUR ---
ADMIT NOTE Pt arrived to [facility] Room 3021 approx 1900. Pt alert & oriented. Pt placed on remote telemetry. VS obtained. Pt states pain in chest "is better." Pt hungry, microwave meal given. Admission questions completed. Evening medications given. Pt did have difficulty w/ po potassium pills. Pt assisted to BR. Pt aware of upcoming tests and plan of care. Continue to monitor. Call light in reach. Bed alarm on. Intentional rounding.
[2016-11-20 00:24] VITALS: BP 136/73; PULSE 85; RESP 20; O2SAT 99
[2016-11-20 02:13] LABS: Mean Corpuscular Hemoglobin 32.9 pg (27.0-35.0); Mean Corpuscular Volume 92.1 fL (81-100)
[2016-11-20 02:29] LABS: INR 2.06 ratio
[2016-11-20 03:44] VITALS: BP 128/70; PULSE 88; RESP 20; O2SAT 96
[2016-11-20 03:58] LABS: Magnesium 1.6 mg/dL (1.6-2.6)
[2016-11-20] MEDS: Heparin 5,000 Unit/mL Inj SUBQ SCH (04:00)
[2016-11-20] MEDS: Diltiazem CD 240 mg ER24 Capsule PO SCH (08:30)
[2016-11-20 08:59] VITALS: PULSE 84
--- NOTE | 2016-11-20 10:55 | PCM.PHAPRO ---
Progress Date of Service: Nov 20, 2016 Warfarin Dosing Date Nov 20-Nov INR 1.92 2.06 INR change 0.14 Warf Dose 5mg 2.5MG Usha Berger PharmD Nov 20, 2016 10:55
--- NOTE | 2016-11-20 12:14 | NUR ---
Case Management- [place] explained and signed/timed by patient. Ava Odell RN, CCM
[2016-11-20 13:25] VITALS: BP 134/67; PULSE 74; RESP 19; O2SAT 93
--- NOTE | 2016-11-20 14:27 | DRSVH ---
PROCEDURE: STRESS ONLY Pharmacological stress myocardial perfusion SPECT with gated imaging and ejection fraction. RADIOPHARMACEUTICAL: 20.9 mCi of Tc-99m tetrafosmin intravenously at peak pharmacologic stress. INDICATIONS: chest pain. TECHNIQUE: Radiopharmaceutical was injected at peak stress test. SPECT images were obtained. SPECT myocardial perfusion images were displayed in short axis, horizontal long axis, and vertical long ax is views. Gated images were reviewed using [employer] software. COMPARISON: None. CARDIAC STRESS: A pharmacologic stress test was performed under the supervision of an attending staff, using an infus ion of Regadenoson. Hemodynamic data: There is normal blood pressure and heart rate response to pharmacologic stress. Symptoms: Patient did complain of chest pain during the infusion. Aminophylline: 100 mg IV EKG: Baseline EKG showed ST-T abnormalities. Hence, stress EKG is noninterpretable. FINDINGS: Raw data: There is good tracer uptake by the myocardium. No significant motion artifacts. Left ventricular function: Gated images demonstrate normal left ventricle wall thickening. No segme ntal wall motion abnormalities. Left ventricle end-diastolic volume is 49 mL. Left ventricle stress ejection fraction is 85%; normal values are above 45%. Myocardial perfusion: There is normal distribution of activity in the left and right ventricular anaya cardium. No perfusion defects. IMPRESSION: Most likely normal myocardial perfusion study. LV ejection fraction is normal. Pharmacolo gical stress EKG is nondiagnostic. Overall this is considered low risk study. Dictated by: Pérez Ramirez Jr., M.D. on 11/20/2016 at 14:23 Approved by: Pérez Ramirez Jr., M.D. on 11/20/2016 at 14:25
--- NOTE | 2016-11-20 14:45 | PCM.DIMED ---
Discharge Instructions Date of Service Nov 20, 2016 Dates of Hospitalization Nov 19, 2016 at 17:51 Discharge Diagnosis Discharge Diagnosis Chest pain Diet Discharge Diet: Heart Healthy Activity Discharge Activity: Limited until seen by PCP Call your provider Call your provider for: Fever or Chills, Chest pain, Excessive diarrhea Patient Instructions Follow-up with PCP in: 1 week Marcelino Hicks MD Nov 20, 2016 14:45
--- NOTE | 2016-11-20 14:48 | PCM.DC.MED ---
Discharge Summary Date of Service Nov 20, 2016 Dates of Hospitalization Date of Hospital Admission Nov 19, 2016 at 17:51 Date of Discharge: Nov 20, 2016 Providers: Admitting Physician: Carlos Zafar Primary Care Physician: Diane Love MD Attending Physician: Marcelino Hicks MD Diagnosis at Time of Discharge Diagnosis at Time of Discharge Chest pain Procedures XRay, CTs & MRIs Date of Service: 11/19/16 1450 PROCEDURE: X-RAY CHEST ONE VIEW, PORTABLE ([id number]) IMPRESSION: 1. No definite acute cardiopulmonary disease. 2. Probable small calcified granuloma peripherally in the left lung base. 3. Cardiomegaly redemonstrated. Dictated by: Christopher Brennan M.D. on 11/19/2016 at 15:15 Approved by: Christopher Brennan M.D. on 11/19/2016 at 15:21 ECG 12 Lead A-fib at rate of about [address] elevation/depression noted. Other Diagnostics NM stress test IMPRESSION: Most likely normal myocardial perfusion study. LV ejection fraction is normal. Pharmacological stress EKG is nondiagnostic. Overall this is considered low risk study. Brief History 86 year old female with a history of hypertension, hypothyroidism, atrial fibrillation (on Coumadin) and anxiety presents with complaint of acute mid- sternal chest pain that started around noon time today. She was sitting when the pain started. She describes the pain as pressure type and rates it at about 6 out of 10 and non-radiating. She stood up hoping that the pain would improve but noticed that she was a little more short of breath than her usual. When the pain didn't resolve she called her neighbor who brought her to the ED. In the ED she received ASA and 1 inch Nitropaste which she says didn't make a difference in her symptoms. Although she says right this moment she has no chest pain she can't really recall when the pain resolved completely and insists that the pain isn't gone completely because it has been going away and coming back since she's been in the ED. She otherwise denies any other associated symptoms like nausea, vomiting, diaphoresis, or lightheadedness. She has not noticed any new swelling in her extremities and denies any orthopnea or paroxysmal nocturnal dyspnea. She denies any recent chest pain with exertion. Of note, she was seen by her area field worker (Dr. Del Cid) on 11/06/2016 and was started on Digoxin. Soon after taking this medication, she noticed that her symptoms of palpitation were worsening and she was developing a "burning rash" across her chest. Hospital Course 86 year old female with a history of hypertension, hypothyroidism, atrial fibrillation (on Coumadin) and anxiety presents with complaint of acute mid- sternal chest pain. # Acute chest pain, present on admission. - Cycle Trop x 3 - NM stress test normal, results as noted above # Elevated Cr on admission unclear if acute or chronic kidney disease - Cr seems to be at baseline, outpatient follow up # Mild acute hypokalemia, present on admission. - Resolved # Chronic atrial fibrillation on warfarin, present on admission - Rate controlled - Continue with Warfarin (Pharmacy to dose) - INR therapeutic at discharge # Chronic Hypothyroidism. Presumed stable. - Continue with home dose Levothyroxine once home meds verified # Chronic Hypertension. Currently a little poorly controlled. - continue home meds # Rheumatoid arthritis not on medication. - Currently stable # Irritable bowel syndrome. - Currently stable. Exam Vital Signs (Last) Date Time Temp Pulse Resp B/P Pulse Ox O2 Delivery O2 Flow Rate FiO2 11/20/16 13:25 36.5 74 19 134/67 93 Room Air Test 11/19/16 15:10 11/19/16 16:31 11/20/16 02:00 11/20/16 10:40 Neutrophils (%) (Auto) 62.3% (40-74) Lymphocytes (%) (Auto) 29.0% (14-46) Monocytes (%) (Auto) 7.1% (4-12) Eosinophils (%) (Auto) 0.8% (0-5) Basophils (%) (Auto) 0.4% (0-3) Activated Partial Thromboplast Time 33.0sec (22.8-33.0) D-Dimer < 0.5mg/L FEU (<0.50) Total Bilirubin 0.2mg/dL (0.0-1.2) Aspartate Amino Transf (AST/SGOT) 20U/L (0-50) Alanine Aminotransferase (ALT/SGPT) 12U/L (0-32) Alkaline Phosphatase 49U/L (25-165) Pro-B-Type Natriuretic Peptide 1517pg/mL (0-738) Total Protein 7.7g/dL (6.4-8.4) Albumin 3.9g/dL (3.4-5.0) Thyroid Stimulating Hormone (TSH) 1.640uIU/mL (0.450-4.500) Digoxin Level 0.7nG/mL (0.9-2.0) Urine Color Yellow (YELLOW) Urine Appearance Clear (CLEAR,HAZY) Urine pH 6.0 (5.0-8.0) Urine Specific [place] 1.010 (1.003-1.035) Urine Protein Negativemg/dL (NEG,TRACE) Urine Glucose (UA) Negativemg/dL (NEGATIVE) Urine Ketones Negativemg/dL (NEGATIVE) Urine Occult Blood Small (NEGATIVE) Urine Nitrite Negative (NEGATIVE) Urine Bilirubin Negative (NEGATIVE) Urine Urobilinogen Normalmg/dL (NORMAL) Urine Leukocyte Esterase Negative (NEGATIVE) Urine RBC 3-10/hpf (0-2) Urine WBC 0-5/hpf (0-5) Urine Epithelial Cells Moderate/hpf (NONE-MOD) Urine Crystals None seen (NONE SEEN) Urine Bacteria Moderate/hpf (NONE-FEW) Urine Hyaline Casts None/lpf (NONE) Urine Granular Casts None seen (NONE SEEN) Urine Waxy Casts None seen (NONE SEEN) Urine Red Blood Cell Casts None seen (NONE SEEN) Urine White Blood Cell Casts None seen (NONE SEEN) Urine Mucus None seen (None Seen) Urine Trichomonas None seen (NONE SEEN) Urine Yeast None (NONE SEEN) Urinalysis Comment None Urine Culture Reflexed Indicated Hold Urine Received (Received) White Blood Count 9.2th/mm3 (3.8-10.1) Red Blood Count 3.92mil/mm3 (3.90-5.20) Hemoglobin 12.9g/dL (12.0-15.6) Hematocrit 36.1% (35.0-46.0) Mean Corpuscular Volume 92.1fL (81-100) Mean Corpuscular Hemoglobin 32.9pg (27.0-35.0) Mean Corpuscular Hemoglobin Concent 35.7% (32.0-37.0) Red Cell Distribution Width 13.9% (12.3-15.4) Platelet Count 172bil/L (150-400) Prothrombin Time 22.4sec (8.1-12.5) Prothromb Time International Ratio 2.06ratio Sodium Level 135mEq/L (134-144) Potassium Level 4.6mEq/L (3.5-5.2) Chloride Level 97mEq/L (97-108) Carbon Dioxide Level 20mmol/L (18-29) Blood Urea Nitrogen 29mg/dL (8-27) Creatinine 1.07mg/dL (0.57-1.00) Estimat Glomerular Filtration Rate 69mL/min (>59) Glucose Level 97mg/dL (60-99) Calcium Level 8.8mg/dL (8.5-10.1) Magnesium Level 1.6mg/dL (1.6-2.6) Triglycerides Level 120mg/dL (0-149) Cholesterol Level 186mg/dL (100-199) LDL Cholesterol, Calculated 85.000mg/dL (0-99) VLDL Cholesterol 24.000mg/dL HDL Cholesterol 77mg/dL (>39) Cholesterol/HDL Ratio 2.42 (0.0-4.4) Troponin T 0.010ug/L (0.0-0.011) Discharge Medications Discharge Medications Cholecalciferol (Vitamin D3) (Vitamin D) 50,000 Unit Capsule 50,000 UNIT PO every saturday (Reported) Cyanocobalamin/Folic Acid (Vitamin H04-Slpkp Acid Tablet) 1 Each Tablet 1 EACH PO DAILY (Reported) Digoxin (Digoxin) 125 Mcg Tablet 125 MCG PO HS (Reported) Diltiazem ER (Cardizem CD) 240 Mg Cap.er.24h 240 MG PO QPM (Reported) Estrogens Conjugated (Premarin) 0.625 Mg Tablet 0.625 MG PO Sat,,,Sat,Sat, (Reported) Levothyroxine (Levothyroxine) 88 Mcg Tablet 88 MCG PO DAILY (Reported) Metoprolol Succinate ER (Metoprolol Succinate ER) 100 Mg Tab.er.24h 100 MG PO QPM (Reported) Warfarin Sodium (Warfarin Sodium) 5 Mg Tablet 5 MG PO ,,, (Reported) Warfarin Sodium (Warfarin Sodium) 5 Mg Tablet 2.5 MG PO Sat,Sat,Fri (Reported) Followup Plan Discharge Diet: Heart Healthy Discharge Activity: Limited until seen by PCP Follow-up with PCP in: 1 week Time spent 35 mins Marcelino Hicks MD Nov 20, 2016 14:48
--- NOTE | 2016-11-20 15:03 | NUR ---
Social Work-initial assessment/ discharge: Data:See initial assessment. P tis a 86 y/o female who was admitted on 11/19/16 for chest pain per H&P. Pt's insurance is [employer] and PCP is Diane Love MD. EMR reviewed. PABLO met with pt and daughter Magnolia to discuss discharge planning, SW role explained. Pt resides at home alone where she remains independent with ADLS. Pt has a cane and does drive. Pt has no HH or SNF history. Pt has no [facility] care insurance or [facility] benefits. Pt has been up independent in the room. Pt states that she has completed DPOA/ advanced directive, SW encouraged a copy to be brought in. Pt's daughter has questions about hiring help at home, SW provided her with information and [employer] Guidebook. SW also provided pt and daughter with discharge planning checklist booklet and encouraged them to call with any questions, phone number provided on white board in room. Pt is medically stable to discharge home today. No anticipated discharge needs. All updated and agreeable to plan. Assessment:pt who is independent at baseline. Plan:Pt to discharge home today via POV. No anticipated discharge needs. All updated and agreeable to plan. RUIZ Sosa Addendum: 11/20/16 at 1511 by JACQUI PRATT Amended: Links added.
--- NOTE | 2016-11-20 16:19 | NUR ---
Discharge Pt discharged home with daughter via private vehicle. Pt alert and oriented x 4, verbalized understanding of discharge and follow up instructions, personal belongings accounted for and left with pt.
== END 2016-11-20 16:11 | disposition home or self-care (01) ==
LOC: SED 14:42 → INTOOBSV 17:51 → MPC 17:51
PROVIDERS: ADMIT Internal Medicine; ATTEND Internal Medicine
DX: R07.9 Chest pain, unspecified (principal); I10 Essential (primary) hypertension; E03.9 Hypothyroidism, unspecified; E87.6 Hypokalemia; I48.2 Chronic atrial fibrillation; M06.9 Rheumatoid arthritis, unspecified; K58.9 Irritable bowel syndrome, unspecified; F41.9 Anxiety disorder, unspecified; Z79.01 Long term (current) use of anticoagulants
CPT/HCPCS: 36415; 71010; 78451; 80048; 80053; 80061; 80162; 81000; 83735; 83880; 84443; 84484; 85025; 85027; 85378; 85610; 85730; 87086; 87088; 87186; 93005; 93017; 99285; A9502; G0378; J0280; J2785